=== PATIENT | male | born 2000 | race Two or more races ===

== ENCOUNTER 2023-07-19 21:02 | Emergency (ER) | payer MEDICAID, OTHER | END 2023-07-19 22:19 | disposition left against medical advice (07) | LOC: ER 21:02 | DX: T14.8XXA Other injury of unspecified body region, initial encounter (principal); Z53.21 Procedure and treatment not carried out due to patient leaving prior to being seen by health care provider; X58.XXXA Exposure to other specified factors, initial encounter; Y93.89 Activity, other specified; Y92.89 Other specified places as the place of occurrence of the external cause; Y99.8 Other external cause status ==

== ENCOUNTER 2024-02-03 11:38 | Emergency (ER) | payer MEDICAID ==
[~2024-02-03] VITALS: Ht 170.2 cm; Wt 82.5 kg
[2024-02-03 12:42] LABS: Urine Bacteria None Seen /hpf (None Seen)
[2024-02-03 12:56] LABS: Urine Blood Negative /uL (Negative); Urine Clarity Clear (Clear); Urine Color Light-Yellow (Yellow); Urine Mucus FEW (None Seen); Urine Protein, UAD Negative (Negative); Urine Specific Gravity 1.026 (1.001-1.035); Urine Urobilinogen Normal (Negative); Urine WBC <1 /hpf (0 - 3); Urine pH 6.5 (5.0-9.0)
[2024-02-03] MEDS ORDERED: DICY10CA PO (13:44)
[2024-02-03] MEDS ORDERED: ACET500T58 PO (13:44)
[2024-02-03] MEDS ORDERED: ZOFR4T PO (13:44)
[2024-02-03 16:39] VITALS: BP 139/78; PULSE 85; RESP 18; TEMP 99.1; O2SAT 95
[2024-02-03] MEDS: DICYCLOMINE HCL 10 MG CAP PO ONE (16:42)
[2024-02-03] MEDS: ONDANSETRON ODT 4 MG TAB PO ONE (16:42)
== END 2024-02-03 16:43 | disposition home or self-care (01) ==
LOC: ER 11:38
DX: A08.4 Viral intestinal infection, unspecified (principal)
CPT/HCPCS: 81001; 99283; J0500; Q0162

== ENCOUNTER 2024-12-27 07:49 | Emergency (ER) | payer MEDICAID ==
[~2024-12-27] VITALS: Ht 170.2 cm; Wt 83.9 kg
[~2024-12-27 07:49] MED LIST: ACET500T58 PO; DICY10CA PO; ZOFR4T PO
[2024-12-27] MEDS: KETOROLAC TROMETH 30 MG/ML 1ML VIAL IM ONE (08:14)
--- NOTE | 2024-12-27 08:17 | ED.PDOC ---
Back pain HPI HPI Comments 24 y.o male presents to the ED for a chief complaint of left sided posterior rib pain that started 5 days ago s/p sneezing. Patient reports pain has been constant, sharp, and progressively worsened with new onset popping sensation today s/p bending down. Patient denies any falls, injuries, or trauma to pain site. Patient denies any medical history or allergies. Chief Complaint: Rib Pain Time Seen by MD: 08:10 Primary Care Provider: NADIA STONE Reviewed Notes: Nurses Notes, Medications, Allergies Allergies: Coded Allergies: No Known Drug Allergy (Verified Allergy, Unknown, 02/03/24) Home Meds Active Scripts Dicyclomine Hcl (BENTYL CAPSULE) 10 Mg Cp, 1 CAP PO Q6HPRN, #20 CAP 0 Refills Prov:VALARIE EARL [facility] 02/03/24 Ondansetron Odt 4MG Tab (ZOFRAN PO) 4 Mg Tb, 4 MG PO Q6HP PRN, #20 TAB ODT TAB-DISSOLVE IN MOUTH, THEN SWALLOW Prov:VALARIE EARL [facility] 02/03/24 Acetaminophen (Acetaminophen) 500 Mg Tab, 500 MG PO Q4HP PRN, #30 TAB Prov:VALARIE EARL [facility] 02/03/24 Information Source: Patient Mode of Arrival: Ambulatory Duration: Since onset Severity: Moderate Quality: Sharp Onset: Spontaneous Circumstance: Other History of: None Modifying Factors: Nothing Associated signs and symptoms: Other Past Medical History PAST MEDICAL HISTORY: Denies Surgical History: Denies all surgeries Family History Family History: Reviewed,noncontributory to illness, Unknown Social History Smoker: Non-Smoker Alcohol: Occasionally Drugs: Denies Drug Use Lives In: Home Constitutional: denies: chills, diaphoresis, fatigue, fever, malaise, sweats, weakness, others EENTM: denies: blurred vision, double vision, ear bleeding, ear discharge, ear drainage, ear pain, ear ringing, eye pain, eye redness, hearing loss, mouth pain, mouth swelling, nasal discharge, nose bleeding, nose congestion, nose pain, photophobia, tearing, throat pain, throat swelling, voice changes, others Respiratory: denies: cough, hemoptysis, orthopnea, SOB at rest, shortness of breath, SOB with excertion, stridor, wheezing, others Cardiovascular: denies: chest pain, dizzy spells, diaphoresis, Dyspnea on exertion, edema, irregular heart beat, left arm pain, lightheadedness, palpitations, PND, syncope, others Gastrointestinal: denies: abdomen distended, abdominal pain, blood streaked bowels, constipated, diarrhea, dysphagia, difficulty swallowing, hematemesis, melena, nausea, poor appetite, poor fluid intake, rectal bleeding, rectal pain, vomiting, others Genitourinary: denies: burning, dysuria, flank pain, frequency, hematuria, incontinence, penile discharge, penile sore, pain, testicle pain, testicle swelling, urgency, others Neurological: denies: dizziness, fainting, headache, left sided numbness, left sided weakness, numbness, paresthesia, pre-existing deficit, right sided numbness, right sided weakness, seizure, speech problems, tingling, tremors, weakness, others Musculoskeletal: reports: others (left rib pain ); denies: back pain, gout, joint pain, joint swelling, muscle pain, muscle stiffness, neck pain Integumetry: denies: bruises, change in color, change in hair/nails, dryness, laceration, lesions, lumps, rash, wounds, others Allergic/Immunocompromised: denies: Difficulty Healing, Frequent Infections, Hives, Itching, others Hematologic/Lymphatic: denies: anemia, blood clots, easy bleeding, easy bruising, swollen glands, others Endocrine: denies: excessive hunger, excessive sweating, excessive thirst, excessive urination, flushing, intolerance to cold, intolerance to heat, unexplained weight gain, unexplained weight loss, others Psychiatric: denies: anxiety, bipolar disorder, depression, hopeless, panic disorder, schizophrenia, sleepless, suicidal, others All Other Systems: Reviewed and Negative Physical Exam General Appearance: No Apparent Distress, Normal HEENT: Normal ENT Inspection, Pharynx Normal, TMs Normal Neck: Full Range of Motion, Non-Tender, Normal, Normal Inspection Respiratory: Chest Non-Tender, Lungs Clear, No Accessory Muscle Use, No Respiratory Distress, Normal Breath Sounds Cardiovascular: No Edema, No JVD, No Murmur, No Gallop, Normal Peripheral Pulses, Regular Rate/Rhythm Breast Exam: Deferred Gastrointestinal: No Organomegaly, Non Tender, No Pulsatile Mass, Normal Bowel Sounds, Soft Genitalia: Deferred Pelvic: Deferred Rectal: Deferred Extremities: Tender (left posterior rib ) Musculoskeletal : Apperance: Normal Neurologic: Alert, 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 Was a procedure done?: No Back Pain Differential Dx Differential Diagnosis: Fracture, Musculoskeletal Pain, Other (chest wall str ain, chest wall contusion, ptx. lung mass, pleurisy, zoster) Other Differential Diagnosis Chest wall pain, sprain, strain, fracture X-Ray, Labs, Meds, VS Vital Signs Date Time Temp Pulse Resp B/P (MAP) Pulse Ox O2 Delivery O2 Flow Rate FiO2 12/27/24 09:55 98.5 88 20 125/70 (88) 91 98.5 12/27/24 08:19 92 16 100 Room Air* 0 21 12/27/24 08:14 98.4 92 16 122/70 (87) 100 98.4 12/27/24 07:56 99.6 105 20 118/67 (84) 93 12/27/24 07:56 20 93 Room Air* 0 21 Current Medications Medications (Trade) Dose Ordered Sig/Roque Route Start Time Stop Time Status Last Admin Ketorolac Tromethamine (Toradol Injection) 15 mg ONCE ONCE IM 12/27/24 08:00 12/27/24 08:01 DC 12/27/24 08:14 Time of 1ST Reevaluation: 08:11 Reevaluation 1ST: Unchanged Patient Education/Counseling: Diagnosis, Treatment, Prognosis, Need For Follow Up Family Education/Counseling: No Family Present Additional Information - I reviewed the following notes from patient's past medical encounters: 02/03/24 for viral gastroenteritis - The following tests were ordered, and results were reviewed by me: X ray and PHA - Additional information was gathered from interviewing the following indepe ndent Historian: None - I reviewed and agreed with the following test results read by other provider: X ray - I discussed treatments and results with medical personnel and: patient Departure 1 Departure Time of Disposition: 10:31 Impression: Primary Impression: Chest wall pain Disposition: 01 HOME / SELF CARE / HOMELESS Condition: Good e-Prescriptions Ibuprofen Micronized (MOTRIN TABLET) 600 Mg Tb 600 MG PO TID PRN, #40 TAB *Black box warning-NSAIDS can increase risk of DE & hypertension, GI irritation, ulceration, bleed, perferation. Do not use post cardiac surgery. Use short duration/lowest effective dose. Prov: REGAN GREEN MD 12/27/24 Cyclobenzaprine Hcl (Cyclobenzaprine Hcl) 10 Mg Tab 10 MG PO Q8HP PRN for 3 Days, #9 TAB Prov: REGAN GREEN MD 12/27/24 Discharged With: Self Critical Care Note Critical Care Time?: No Stability Stability form required: No Heart Score Heart Score: Heart Score Response (Comments) Value History N/A 0 EKG N/A 0 Age N/A 0 Risk Factors N/A 0 Troponin N/A 0 Total 0 I personally scribed for REGAN GREEN MD ([email or web address]) on 12/27/24 at 08:17. Electronically submitted by Karrie Clement ([facility]). REGAN GREEN MD Dec 27, 2024 08:17
[2024-12-27 08:19] VITALS: PULSE 92; RESP 16; O2SAT 100
[2024-12-27 09:55] VITALS: BP 125/70; PULSE 88; RESP 20; TEMP 98.5; O2SAT 91
--- NOTE | 2024-12-27 10:08 | DVH ---
EXAMINATION: XY L RIB X RAY INDICATION: pain COMPARISON: None TECHNIQUE: Frontal view of the chest and oblique views of the left ribs FINDINGS: No focal consolidation, pleural effusion or significant pneumothorax. Normal cardiomediastinal silhou ette. No displaced left rib fracture. IMPRESSION: 1. No displaced left rib fracture.
[2024-12-27] MEDS ORDERED: CYCL-839 PO (10:32)
[2024-12-27] MEDS ORDERED: IBU600T PO (10:32)
== END 2024-12-27 10:40 | disposition home or self-care (01) ==
LOC: ER 07:49
DX: R07.89 Other chest pain (principal)
CPT/HCPCS: 71101; 96372; 99283; J1885